=== PATIENT | female | born 1940 | race Caucasian/White ===

== ENCOUNTER 2016-04-15 08:00 | Outpatient (CLI) | payer MEDICARE, OTHER | END 2016-04-15 23:59 | disposition home or self-care (01) | DX: L03.031 Cellulitis of right toe (principal) ==

== ENCOUNTER 2016-04-23 08:00 | Outpatient (CLI) | payer MEDICARE, OTHER | END 2016-04-23 08:01 | disposition home or self-care (01) | DX: M34.1 CR(E)ST syndrome (principal); M25.50 Pain in unspecified joint ==

== ENCOUNTER 2016-05-09 12:12 | Outpatient (CLI) | payer MEDICARE, OTHER | END 2016-05-09 12:13 | disposition home or self-care (01) | DX: M34.1 CR(E)ST syndrome (principal); M25.50 Pain in unspecified joint ==

== ENCOUNTER 2017-08-17 14:30 | Outpatient (CLI) | payer MEDICARE, OTHER ==
[2017-08-17 17:52] LABS: BUN - BLOOD UREA NITROGEN 24 mg/dL (6-20); CALCIUM 8.9 mg/dL (8.5-10.3); CARBON DIOXIDE - CO2 24 mmol/L (21-32); CHLORIDE 101 mmol/L (101-111); CREATININE 0.9 mg/dL (0.4-1.0); GFR - MDRD 61 (>89); GLUCOSE 99 mg/dL (70-100); SODIUM 133 mmol/L (135-145)
== END 2017-08-17 14:31 | disposition home or self-care (01) ==
LOC: LAB.F 14:30
PROVIDERS: ATTEND Nurse Practitioner Family
DX: R53.83 Other fatigue (principal); E03.9 Hypothyroidism, unspecified
CPT/HCPCS: 36415; 80048; 84443

== ENCOUNTER 2018-06-18 08:00 | Outpatient (CLI) | payer MEDICARE, OTHER ==
[2018-06-18 18:19] LABS: GLUCOSE, URINE (UA) NEGATIVE (NEGATIVE); KETONES,URINE (UA) 15 mg/dL (NEGATIVE); LEUKOCYTE ESTERASE, URINE LARGE (NEGATIVE); NITRITE,URINE NEGATIVE (NEGATIVE); OCCULT BLOOD,URINE SMALL (NEGATIVE); PROTEIN,URINE TRACE mg/dL (NEGATIVE); UROBILINOGEN,URINE 0.2 (NORMAL) E.U./dL (NORMAL)
[2018-06-18 18:42] LABS: CLARITY,URINE CLOUDY (CLEAR)
[2018-06-18 18:43] LABS: BILIRUBIN,URINE NEGATIVE (NEGATIVE); ICTOTEST,URINE NEGATIVE
[2018-06-18 18:57] LABS: BACTERIA,URINE Many /HPF (None Seen); SQUAMOUS EPITHELIAL CELL,UR RARE Squamous (<= Few)
== END 2018-06-18 23:59 | disposition home or self-care (01) ==
LOC: LAB.R 08:00
PROVIDERS: ATTEND Internal Medicine
DX: R35.0 Frequency of micturition (principal)
CPT/HCPCS: 81001; 81003; 87086; 87181

== ENCOUNTER 2018-09-10 13:20 | Outpatient (CLI) | payer MEDICARE, OTHER | END 2018-09-10 13:21 | disposition home or self-care (01) | LOC: LAB.F 13:20 | PROVIDERS: ATTEND Internal Medicine | DX: E03.9 Hypothyroidism, unspecified (principal) | CPT/HCPCS: 36415; 84443 ==

== ENCOUNTER 2019-09-01 07:00 | Outpatient (CLI) | payer MEDICARE, OTHER | END 2019-09-01 23:59 | disposition home or self-care (01) | LOC: LAB.R 07:00 | PROVIDERS: ATTEND Physician Assistant Medical | DX: Z20.828 Contact with and (suspected) exposure to other viral communicable diseases (principal); B97.89 Other viral agents as the cause of diseases classified elsewhere | CPT/HCPCS: 81599 ==

== ENCOUNTER 2019-09-01 08:00 | Outpatient (CLI) | payer MEDICARE, OTHER ==
--- NOTE | 2019-09-01 16:50 | XRAY Report ---
Reason: SOA Procedure Date: 09/01/2019 Accession Number: [id number] / [id number] Procedure: XRS - Chest 2 View X-Ray CPT Code: 28468 Final Report FULL RESULT: PROCEDURE: Chest 2 View X-Ray INDICATIONS: SOA TECHNIQUE: 2 views of the chest were obtained. COMPARISON: None. FINDINGS: Cardiac mediastinal silhouette is normal in size and contour. There is mild elevation of the right hemidiaphragm with blunting of the right costophrenic angle. The right upper lobe opacity is present measuring 30 x 39 mm. Osseous structures are intact. IMPRESSION: 1. Right upper lobe opacity as above. While this could represent a focus of pneumonia, mass lesion such as neoplasm cannot be excluded. CT chest is recommended for further evaluation. Reviewed by: Rosalind Tellez MD on 09/01/2019 4:49 PM PDT Approved by: Rosalind Tellez MD on 09/01/2019 4:49 PM PDT Station ID: [id number]
== END 2019-09-01 23:59 | disposition home or self-care (01) ==
LOC: DI.S 08:00 → EDSTATUS 15:42 → DI.S 23:59
PROVIDERS: ATTEND Physician Assistant Medical
DX: R91.8 Other nonspecific abnormal finding of lung field (principal)
CPT/HCPCS: 71046

== ENCOUNTER 2019-09-27 10:57 | Outpatient (CLI) | payer MEDICARE, OTHER ==
--- NOTE | 2019-09-27 12:47 | CT Report ---
PROCEDURE: CHEST WO INDICATIONS: ABN CXR TECHNIQUE: Noncontrast 5 mm thick sections acquired from the pulmonary apices to the posterior costophrenic angl es. 7 mm thick coronal and sagittal MIP reformats were then acquired. For radiation dose reduction, the following was used: automated exposure control, adjustment of mA and/or kV according to patient size. COMPARISON: Chest x-ray examination dated 09.01.19. FINDINGS: Image quality: Excellent. Lungs and pleura: Corresponding to the plain film finding, there is a masslike density within the rig ht upper lobe anteriorly, measuring 73 mm transverse, extending to the right hilum. There are 2 adjac ent perifissural nodules adjacent to the minor fissure on the right, measuring roughly 3-4 mm (series 4 image 136). No pleural effusions or pneumothorax. Central and peripheral airways are patent and n ormal in caliber. Mediastinum: Heart size is normal. No pericardial effusion. Mildly enlarged precarinal adenopathy m easuring 11 mm short axis. Thoracic aorta and central pulmonary arteries are normal in size. Esophag us is normal in caliber. No hiatal hernia. Bones and chest wall: No suspicious bony lesions. Multiple chronic bilateral rib fractures are pres ent. No vertebral body compression fractures. No axillary or supraclavicular adenopathy by size crit eria. The thyroid is normal in size. Abdomen: Visualized upper abdominal solid organs and bowel loops appear normal in the absence of con trast. IMPRESSION: 1. Masslike density within the right upper lobe, representing neoplasm until proven otherwise. Dense pneumonia could produce a similar appearance. 2. Indeterminate perifissural nodules within the right lung as described above. 3. Reactive versus metastatic precarinal adenopathy. Reviewed by: Rohit Pate MD on 09/27/2019 12:45 PM PDT Approved by: Rohit Pate MD on 09/27/2019 12:45 PM PDT Station ID: [id number]
== END 2019-09-27 10:58 | disposition home or self-care (01) ==
LOC: DI 10:57
PROVIDERS: ATTEND Registered Nurse
DX: R91.8 Other nonspecific abnormal finding of lung field (principal); R59.0 Localized enlarged lymph nodes
CPT/HCPCS: 71250

== ENCOUNTER 2019-10-02 13:13 | Outpatient (CLI) | payer MEDICARE, OTHER | END 2019-10-02 13:14 | disposition home or self-care (01) | LOC: LAB.S 13:13 → LAB 13:14 | PROVIDERS: ATTEND Registered Nurse | DX: R05 Cough (principal); R43.0 Anosmia; Z20.828 Contact with and (suspected) exposure to other viral communicable diseases | CPT/HCPCS: 81599 ==

== ENCOUNTER 2019-11-30 13:17 | Outpatient (CLI) | payer MEDICARE, OTHER ==
[2019-11-30 20:10] LABS: BASOPHILS # (AUTO) 0.1 10^3/uL (0.0-0.1); EOSINOPHILS # (AUTO) 0.4 10^3/uL (0.0-0.7); HGB - HEMOGLOBIN 13.2 g/dL (12.0-16.0); LYMPHOCYTES # (AUTO) 2.3 10^3/uL (1.5-3.5); LYMPHOCYTES % (AUTO) 31.1 %; MEAN CORPUSCULAR HEMOGLOBIN 30.6 pg (27.0-31.0); MEAN CORPUSCULAR HGB CONC 31.4 g/dL (32.0-36.0); MEAN CORPUSCULAR VOLUME 97.5 fL (81.0-99.0); MEAN PLATELET VOLUME 9.7 fL (7.9-10.8); MONOCYTES # (AUTO) 0.7 10^3/uL (0.0-1.0); MONOCYTES % (AUTO) 8.9 %; NEUTROPHILS % (AUTO) 53.7 %; PLT - PLATELET COUNT 290 10^3/uL (130-450); RED BLOOD COUNT 4.32 10^6/uL (4.20-5.40); RED CELL DISTRIBUTION WIDTH 14.8 % (12.0-15.0); WHITE BLOOD COUNT 7.3 x10^3/uL (4.8-10.8)
[2019-11-30 20:20] LABS: ALBUMIN 3.9 g/dL (3.2-5.5); ALBUMIN/GLOBULIN RATIO 1.2 (1.0-2.2); ALKALINE PHOSPHATASE 50 IU/L (42-121); ALT ALANINE AMINOTRANSFERASE 15 IU/L (10-60); AST ASPARTATE AMINOTRANSFERASE 22 IU/L (10-42); BILIRUBIN,TOTAL 0.7 mg/dL (0.2-1.0); BUN - BLOOD UREA NITROGEN 21 mg/dL (6-20); CALCIUM 9.1 mg/dL (8.5-10.3); CARBON DIOXIDE - CO2 26 mmol/L (21-32); CHLORIDE 102 mmol/L (101-111); CHOL/HDL RATIO 4.2 (<4.4); CHOLESTEROL 205 mg/dL; GLUCOSE 86 mg/dL (70-100); HDL CHOLESTEROL 49 mg/dL; LDL CHOLESTEROL,CALCULATED 143 mg/dL; LDL/HDL RATIO 2.9 (<4.4); SODIUM 135 mmol/L (135-145); TOTAL PROTEIN 7.1 g/dL (6.7-8.2); VLDL CHOLESTEROL 13 mg/dL
== END 2019-11-30 13:18 | disposition home or self-care (01) ==
LOC: LAB.S 13:17
PROVIDERS: ATTEND Registered Nurse
DX: E03.9 Hypothyroidism, unspecified (principal); F17.200 Nicotine dependence, unspecified, uncomplicated; F32.9 Major depressive disorder, single episode, unspecified; K21.9 Gastro-esophageal reflux disease without esophagitis
CPT/HCPCS: 36415; 80053; 80061; 83721; 84443; 85025

== ENCOUNTER 2019-12-14 13:36 | Outpatient (CLI) | payer MEDICARE, OTHER ==
--- NOTE | 2019-12-14 15:31 | CT Report ---
PROCEDURE: CHEST WO INDICATIONS: PNEUMONIA TECHNIQUE: Noncontrast 5 mm thick sections acquired from the pulmonary apices to the posterior costophrenic angl es. 7 mm thick coronal and sagittal MIP reformats were then acquired. For radiation dose reduction, the following was used: automated exposure control, adjustment of mA and/or kV according to patient size. COMPARISON: FINDINGS: Image quality: Excellent. Lungs and pleura: No acute air space opacities, but the lung parenchyma is enlarged and the appearan ce is suggestive of COPD. A large area of dense airspace consolidation at the anterior right upper lo be has prominently improved, with only mild residual stranding and no discrete definite malignant-jay earing mass remaining in that area.. No pleural effusions or pneumothorax. Central and peripheral a irways are patent and normal in caliber. Mediastinum: Heart size is normal. No pericardial effusion. No mediastinal adenopathy by size crit eria. Thoracic aorta and central pulmonary arteries are normal in size. Esophagus is normal in mauricio vince. No hiatal hernia. Bones and chest wall: No suspicious bony lesions. No vertebral body compression fractures. No axil selwyn or supraclavicular adenopathy by size criteria. The thyroid is normal in size but is not well s een by this noncontrast technique. Abdomen: Visualized upper abdominal solid organs and bowel loops appear normal in the absence of con trast. IMPRESSION: Severe COPD, centrilobular emphysema. Prominent improvement in an area of dense masslike airspace dis ease anterior left upper lobe seen on CT scanning 09/27/2019. No definite mediastinal or hilar adenopa thy is found. Quality of visualization of the mediastinum is somewhat limited by absence of intraveno us contrast. Assuming absence of radiation therapy or chemotherapy the pattern of improvement discuss ed above would suggest that the masslike structure in August of this year was dense pneumonia rather th an malignancy. Follow-up by plain film imaging is recommended to confirm resolution of the mild remaining disease at the right upper lobe. Reviewed by: Natan Soto MD on 12/14/2019 3:29 PM PDT Approved by: Natan Soto MD on 12/14/2019 3:29 PM PDT Station ID: [id number]
== END 2019-12-14 13:37 | disposition home or self-care (01) ==
LOC: DI 13:36
PROVIDERS: ATTEND Internal Medicine Critical Care Medicine
DX: J43.2 Centrilobular emphysema (principal); J98.4 Other disorders of lung
CPT/HCPCS: 71250

== ENCOUNTER 2021-01-12 11:50 | Outpatient (CLI) | payer MEDICARE, OTHER ==
[2021-01-12 16:23] LABS: BASOPHILS # (AUTO) 0.1 10^3/uL (0.0-0.1); BASOPHILS % (AUTO) 0.7 %; EOSINOPHILS # (AUTO) 0.4 10^3/uL (0.0-0.7); EOSINOPHILS % (AUTO) 4.2 %; HCT - HEMATOCRIT 47.5 % (37.0-47.0); HGB - HEMOGLOBIN 14.7 g/dL (12.0-16.0); LYMPHOCYTES # (AUTO) 2.2 10^3/uL (1.5-3.5); LYMPHOCYTES % (AUTO) 23.3 %; MEAN CORPUSCULAR HEMOGLOBIN 31.6 pg (27.0-31.0); MEAN CORPUSCULAR HGB CONC 30.9 g/dL (32.0-36.0); MEAN CORPUSCULAR VOLUME 102.2 fL (81.0-99.0); MEAN PLATELET VOLUME 9.4 fL (7.9-10.8); MONOCYTES # (AUTO) 0.8 10^3/uL (0.0-1.0); MONOCYTES % (AUTO) 9.1 %; NEUTROPHILS # (AUTO) 5.7 10^3/uL (1.5-6.6); NEUTROPHILS % (AUTO) 62.3 %; PLT - PLATELET COUNT 333 10^3/uL (130-450); RED BLOOD COUNT 4.65 10^6/uL (4.20-5.40); RED CELL DISTRIBUTION WIDTH 14.6 % (12.0-15.0); WHITE BLOOD COUNT 9.2 x10^3/uL (4.8-10.8)
[2021-01-12 16:33] LABS: ALBUMIN 3.9 g/dL (3.2-5.5); ALBUMIN/GLOBULIN RATIO 1.2 (1.0-2.2); BILIRUBIN,TOTAL 0.7 mg/dL (0.2-1.0); CALCIUM 9.3 mg/dL (8.5-10.3); POTASSIUM 4.3 mmol/L (3.5-5.0); TOTAL PROTEIN 7.2 g/dL (6.7-8.2)
[2021-01-12 16:49] LABS: THYROID STIMULATING HORMONE 0.27 uIU/mL (0.34-5.60)
[2021-01-12 17:27] LABS: FREE T4 (FREE THYROXINE) 1.6 ng/dL (0.58-1.64)
== END 2021-01-12 11:51 | disposition home or self-care (01) ==
LOC: LAB.S 11:50
PROVIDERS: ATTEND Registered Nurse
DX: K21.9 Gastro-esophageal reflux disease without esophagitis (principal); E03.9 Hypothyroidism, unspecified; F17.200 Nicotine dependence, unspecified, uncomplicated; Z71.6 Tobacco abuse counseling
CPT/HCPCS: 36415; 80053; 84439; 84443; 85025

== ENCOUNTER 2022-02-24 12:22 | Outpatient (CLI) | payer MEDICARE, OTHER ==
[2022-02-24 15:05] LABS: BASOPHILS # (AUTO) 0.1 10^3/uL (0.0-0.1); BASOPHILS % (AUTO) 0.7 %; EOSINOPHILS # (AUTO) 0.5 10^3/uL (0.0-0.7); EOSINOPHILS % (AUTO) 4.8 %; HCT - HEMATOCRIT 46.4 % (37.0-47.0); HGB - HEMOGLOBIN 14.9 g/dL (12.0-16.0); LYMPHOCYTES # (AUTO) 2.6 10^3/uL (1.5-3.5); LYMPHOCYTES % (AUTO) 24.1 %; MEAN CORPUSCULAR HEMOGLOBIN 30.7 pg (27.0-31.0); MEAN CORPUSCULAR HGB CONC 32.1 g/dL (32.0-36.0); MEAN CORPUSCULAR VOLUME 95.7 fL (81.0-99.0); MEAN PLATELET VOLUME 9.4 fL (7.9-10.8); MONOCYTES # (AUTO) 0.9 10^3/uL (0.0-1.0); MONOCYTES % (AUTO) 8.5 %; NEUTROPHILS # (AUTO) 6.6 10^3/uL (1.5-6.6); NEUTROPHILS % (AUTO) 61.5 %; PLT - PLATELET COUNT 336 10^3/uL (130-450); RED BLOOD COUNT 4.85 10^6/uL (4.20-5.40); RED CELL DISTRIBUTION WIDTH 13.2 % (12.0-15.0); WHITE BLOOD COUNT 10.8 x10^3/uL (4.8-10.8)
[2022-02-24 15:22] LABS: ALBUMIN 3.8 g/dL (3.2-5.5); ALBUMIN/GLOBULIN RATIO 1.1 (1.0-2.2); ALKALINE PHOSPHATASE 61 IU/L (42-121); ALT ALANINE AMINOTRANSFERASE < 10 IU/L (10-60); AST ASPARTATE AMINOTRANSFERASE 18 IU/L (10-42); BILIRUBIN,TOTAL 0.8 mg/dL (0.2-1.0); BUN - BLOOD UREA NITROGEN 22 mg/dL (6-20); CALCIUM 9.4 mg/dL (8.5-10.3); CARBON DIOXIDE - CO2 27 mmol/L (21-32); CHLORIDE 101 mmol/L (101-111); CHOL/HDL RATIO 4.4 (<4.4); CHOLESTEROL 199 mg/dL; CREATININE 1.1 mg/dL (0.4-1.0); GFR - MDRD 48 (>89); GLUCOSE 92 mg/dL (70-100); HDL CHOLESTEROL 45 mg/dL; LDL CHOLESTEROL,CALCULATED 142 mg/dL; LDL/HDL RATIO 3.2 (<4.4); POTASSIUM 4.5 mmol/L (3.5-5.0); SODIUM 138 mmol/L (135-145); TOTAL PROTEIN 7.4 g/dL (6.7-8.2); TRIGLYCERIDES 62 mg/dL; VLDL CHOLESTEROL 12 mg/dL
[2022-02-24 15:36] LABS: THYROID STIMULATING HORMONE 16.09 uIU/mL (0.34-5.60)
[2022-02-24 16:57] LABS: FREE T4 (FREE THYROXINE) 1.54 ng/dL (0.58-1.64)
== END 2022-02-24 12:23 | disposition home or self-care (01) ==
LOC: LAB.S 12:22
PROVIDERS: ATTEND Registered Nurse
DX: E03.9 Hypothyroidism, unspecified (principal); Z13.220 Encounter for screening for lipoid disorders; F17.200 Nicotine dependence, unspecified, uncomplicated
CPT/HCPCS: 36415; 80053; 80061; 83721; 84439; 84443; 85025

== ENCOUNTER 2022-03-10 08:00 | Outpatient (CLI) | payer MEDICARE, OTHER ==
--- NOTE | 2022-03-10 16:51 | XRAY Report ---
PROCEDURE: Finger(s) RT INDICATIONS: PAIN IN FINGER OF RIGHT HAND TECHNIQUE: AP hand, 2 views of the right third finger(s) acquired. COMPARISON: 03/02/2013 FINDINGS: Bones: No definite acute fractures. Moderate-severe polyarticular degenerative changes involving th e first through third metacarpophalangeal joints which have progressed. Progression of degenerative c hanges involving the distal interphalangeal joints of the second through fifth fingers with progressi on of prominent marginal osteophytes. There is mild ulnar deviation of the second through fifth finge rs at the level of the metacarpophalangeal joints. Moderate degenerative changes of the first carpome tacarpal joint and triscaphe joint. Scapholunate interval measures at the upper limits of normal. The re appears to be flexion deformity of the distal interphalangeal joints of the third through fifth fi ngers. With overlying soft tissue prominence of the distal interphalangeal joints. Soft tissue calcif ications are again noted over the radial aspect of the right wrist. Subchondral lucencies noted at t he base of the second proximal phalanx as well as the head of the second metacarpal. IMPRESSION: Right middle finger without acute fracture or dislocation. Polyarticular degenerative changes of the imaged right hand with findings suggestive of inflammatory arthropathy as detailed above. Interval pr ogression of polyarticular degenerative changes as described above. Recommend clinical correlation. Reviewed by: Betito Chapman MD on 03/10/2022 4:49 PM PST Approved by: Betito Chapman MD on 03/10/2022 4:49 PM PST Station ID: [id number]
== END 2022-03-10 23:59 | disposition home or self-care (01) ==
LOC: DI.S 08:00
PROVIDERS: ATTEND Physician Assistant Medical
DX: M19.041 Primary osteoarthritis, right hand (principal); M18.11 Unilateral primary osteoarthritis of first carpometacarpal joint, right hand

== ENCOUNTER 2022-04-03 07:00 | Outpatient (CLI) | payer MEDICARE, OTHER ==
--- NOTE | 2022-04-03 16:59 | XRAY Report ---
PROCEDURE: Finger(s) RT INDICATIONS: RIGHT 3RD FINGER PAIN TECHNIQUE: AP hand, 3 views of the third finger(s) acquired. COMPARISON: 03/10/2022 FINDINGS: Bones: No obvious erosion at the site of the distal third finger. Moderate scattered arthrosis in mul tiple joints, particularly the first CMC and scattered interphalangeal joints with widening of the sc apholunate interval. Chronic hyperdensities adjacent to the radial styloid. Again seen is a bone frag ment adjacent to the first finger distal phalanx. Soft tissues: No suspicious calcifications otherwise. Suspected soft tissue swelling is present. IMPRESSION: No obvious radiographic osseous erosion. Please consider osteomyelitis to further evaluate for soft t issue pathology and osteomyelitis if necessary. Moderate scattered arthrosis, particularly affecting the first CMC and scattered interphalangeal join ts. Stable widening of the scapholunate interval. Reviewed by: Zeus Ramos MD on 04/03/2022 4:57 PM PST Approved by: Zeus Ramos MD on 04/03/2022 4:57 PM PST Station ID: [id number]
== END 2022-04-03 23:59 | disposition home or self-care (01) ==
LOC: DI.S 07:00
PROVIDERS: ATTEND Registered Nurse
DX: M19.041 Primary osteoarthritis, right hand (principal); M18.11 Unilateral primary osteoarthritis of first carpometacarpal joint, right hand

== ENCOUNTER 2022-04-16 12:30 | Outpatient (CLI) | payer MEDICARE, OTHER ==
[2022-04-16 16:34] LABS: THYROID STIMULATING HORMONE 6.15 uIU/mL (0.34-5.60)
[2022-04-16 17:24] LABS: FREE T4 (FREE THYROXINE) 1.5 ng/dL (0.58-1.64)
== END 2022-04-16 12:31 | disposition home or self-care (01) ==
LOC: LAB.S 12:30
PROVIDERS: ATTEND Registered Nurse
DX: E03.9 Hypothyroidism, unspecified (principal)
CPT/HCPCS: 36415; 84439; 84443

== ENCOUNTER 2023-06-09 13:39 | Outpatient (CLI) | payer MEDICARE, OTHER ==
--- NOTE | 2023-06-09 15:37 | XRAY Report ---
PROCEDURE: Cervical Spine 2-3V INDICATIONS: ULNAR NEUROPATHY,LEFT TECHNIQUE: 3 view(s) of the cervical spine were acquired. COMPARISON: None. FINDINGS: Bones: No acute cervical spine fracture or dislocation. Straightening of normal cervical lordosis is seen. There is partial bony union at C3-4, C5-6 and C6-7 levels. Degenerative endplate changes are no carlos throughout cervical spine. Bilateral facet hypertrophic changes also noted. The lateral masses of C1 appear intact on the odontoid view. No suspicious bony lesions. Soft tissues: No prevertebral soft tissue swelling. IMPRESSION: No displaced fracture or traumatic subluxation. Partial bony union in cervical spine. Degenerative di sc disease throughout cervical spine. Reviewed by: Stephen Cuevas MD on 06/09/2023 3:36 PM PDT Approved by: Stephen Cuevas MD on 06/09/2023 3:36 PM PDT Station ID: [id number]
== END 2023-06-09 13:40 | disposition home or self-care (01) ==
LOC: DI.S 13:39
PROVIDERS: ATTEND Registered Nurse
DX: M50.30 Other cervical disc degeneration, unspecified cervical region (principal); M47.812 Spondylosis without myelopathy or radiculopathy, cervical region

== ENCOUNTER 2023-09-14 12:11 | Outpatient (CLI) | payer MEDICARE, OTHER ==
[2023-09-14 14:55] LABS: BASOPHILS % (AUTO) 0.5 %; EOSINOPHILS # (AUTO) 0.5 10^3/uL (0.0-0.7); EOSINOPHILS % (AUTO) 5.8 %; HCT - HEMATOCRIT 41.4 % (37.0-47.0); LYMPHOCYTES # (AUTO) 2.4 10^3/uL (1.5-3.5); LYMPHOCYTES % (AUTO) 28.9 %; MEAN CORPUSCULAR HEMOGLOBIN 29.4 pg (27.0-31.0); MEAN CORPUSCULAR HGB CONC 31.4 g/dL (32.0-36.0); MEAN CORPUSCULAR VOLUME 93.7 fL (81.0-99.0); MEAN PLATELET VOLUME 9.8 fL (7.9-10.8); MONOCYTES # (AUTO) 0.9 10^3/uL (0.0-1.0); MONOCYTES % (AUTO) 11.1 %; NEUTROPHILS # (AUTO) 4.5 10^3/uL (1.5-6.6); NEUTROPHILS % (AUTO) 53.6 %; PLT - PLATELET COUNT 302 10^3/uL (130-450); RED BLOOD COUNT 4.42 10^6/uL (4.20-5.40); RED CELL DISTRIBUTION WIDTH 13.3 % (12.0-15.0); WHITE BLOOD COUNT 8.5 x10^3/uL (4.8-10.8)
[2023-09-14 15:45] LABS: CALCIUM 9.7 mg/dL (8.5-10.3); CREATININE 0.7 mg/dL (0.6-1.3); POTASSIUM 4.5 mmol/L (3.5-4.5)
== END 2023-09-14 12:12 | disposition home or self-care (01) ==
LOC: LAB.S 12:11
PROVIDERS: ATTEND Emergency Medicine
DX: R60.0 Localized edema (principal)
CPT/HCPCS: 36415; 80048; 83880; 85025; 85379

== ENCOUNTER 2023-09-14 17:45 | Emergency (ER) | payer MEDICARE, OTHER ==
--- NOTE | 2023-09-14 18:12 | ED Physician Documentation ---
PD HPI LOWER EXT INJURY - Stated complaint Stated Complaint: R FOOT PX/SWOLLEN - Chief complaint Chief Complaint: Ext Problem - History obtained from History obtained from: Patient - Additional information Additional information: 82-year-old presents referred by clinic for positive D-dimer. She has had a mildly painful and swollen right foot and calf for about 2 weeks now. There was no trauma. No history of DVT or PE. PD PAST MEDICAL HISTORY - Past Medical History Past Medical History: Yes Endocrine/Autoimmune: HyPOthyroidism GI: GERD HEENT: Glaucoma Psych: Depression Musculoskeletal: Osteoarthritis - Past Surgical History General: Appendectomy Ortho: Other - Present Medications Home Medications: Ambulatory Orders Medication Instructions Recorded Confirmed DULoxetine [Cymbalta] 60 mg PO DAILY 09/14/23 09/14/23 Gabapentin [Neurontin] 600 mg PO HS 09/14/23 09/14/23 Levothyroxine [Synthroid] 112 mcg PO QDAC 09/14/23 09/14/23 Pantoprazole Sodium [Protonix] 20 mg PO DAILY 09/14/23 09/14/23 amLODIPine [Norvasc] 5 mg PO DAILY 09/14/23 09/14/23 - Allergies Allergies/Adverse Reactions: Allergies Allergy/AdvReac Type Severity Reaction Status Date / Time No Known Drug Allergies Allergy Verified 09/14/23 18:00 - Social History Does the pt smoke?: Yes Smoking Status: Current some day smoker Does the pt drink ETOH?: No Does the pt have substance abuse?: No PD ED PE NORMAL - Vitals Vital signs reviewed: Yes - General General: Alert and oriented X 3, No acute distress - Extremities Extremities: Other (Right calf is edematous to the upper calf. Nontender. No discoloration. Good pedal pulses.) - Neuro Neuro: Alert and oriented X 3, Normal speech - Psych Psych: Normal mood, Normal affect Results - Vitals Vitals: Vital Signs - 24 hr 09/14/23 17:56 Temperature 36.7 C Heart Rate 78 Respiratory 15 Rate Blood Pressure 101/79 O2 Saturation 98 Oxygen O2 Source Room air - Rads (name of study) Right lower extremity ultrasound negative per RDMS Relevant Findings:: Prelim report reviewed Departure - Departure Disposition: 01 Home, Self Care Clinical Impression: Right leg swelling Condition: Good Record reviewed to determine appropriate education?: Yes Instructions: ED Leg Swelling Unilateral Comments: The ultrasound of your leg is negative. There is no blood clot there. Call your doctor to arrange a follow-up appointment, make the next available appointment. In the interim, return anytime if worse or if new symptoms develop. Forms: PCP List
--- NOTE | 2023-09-14 19:24 | Ultrasound Report ---
PROCEDURE: Duplex Ext Veins Right INDICATIONS: RLE swell TECHNIQUE: Real-time imaging, as well as color and pulse Doppler interrogation, were performed of the lower extr emity deep veins from the inguinal ligament to the popliteal fossa. Attempted visualization of the ca lf veins was performed. COMPARISON: None. FINDINGS: The deep veins are normally compressible, and free of intraluminal thrombus. Color and pu lse Doppler demonstrate normal phasic intraluminal flow. There is normal augmentation response to di stal compression maneuver. Incidentally noted 2.9 x 0.8 cm Dugan's cyst. IMPRESSION: No deep venous thrombosis of the visualized lower extremity. Reviewed by: Zeus Ramos MD on 09/14/2023 7:23 PM PDT Approved by: Zeus Ramos MD on 09/14/2023 7:23 PM PDT Station ID: [id number]
[2023-09-14 19:29] VITALS: BP 108/71; O2SAT 99
== END 2023-09-14 19:34 | disposition home or self-care (01) ==
LOC: ED 17:45
DX: R60.0 Localized edema (principal); F17.200 Nicotine dependence, unspecified, uncomplicated
CPT/HCPCS: 36415; 80048; 83880; 85025; 85379; 99283; 99284